=== PATIENT | male | born 1990 ===

== ENCOUNTER 2016-11-07 15:36 | Emergency (ER) | payer OTHER ==
[2016-11-07 15:54] VITALS: BP 124/67; PULSE 77; RESP 16; TEMP 99.2; O2SAT 100
--- NOTE | 2016-11-07 16:36 | ED PDOC ---
HPI: Back Time Seen by Provider: 11/07/16 16:20 Chief Complaint (Nursing): Back Pain History Per: Patient (Right flank pain x 4 days. Worse on inspiration. No SOB. No fever. No urinary sxs. No NVD.) Onset/Duration Of Symptoms: Days (4) Current Symptoms Are (Timing): Still Present Quality Of Discomfort: Aching Severity: Moderate Pain Scale Rating Of: 4 Previous Symptoms: Back Pain Associated Symptoms: None Exacerbating Factor(s): Other (inspiration) Past Medical History Vital Signs: Last Vital Signs Temp 99.2 F 11/07/16 15:52 Pulse 77 11/07/16 15:52 Resp 16 11/07/16 15:52 BP 124/67 11/07/16 15:52 Pulse Ox 100 11/07/16 15:52 - Medical History PMH: Denies: HIV, Chronic Kidney Disease - Surgical History Surgical History: Appendectomy (laparoscopic in 07/2015) - Family History Family History: States: Unknown Family Hx - Immunization History Hx Tetanus Toxoid Vaccination: Yes (Last ER visit ) - Home Medications Home Medications: Ambulatory Orders Medication Instructions Recorded Amoxicillin/Clavulanate Pota 1 tab PO Q12 #14 tab 07/18/15 [Augmentin 875 mg-125 mg] Oxycodone HCl/Acetaminophen 1 tab PO Q6 #20 tab 07/18/15 [Percocet 325 mg-5 mg] Azithromycin [Zithromax] 250 mg PO DAILY #6 tab 09/17/15 Dicyclomine [Bentyl] 20 mg PO Q12 PRN #20 tab 11/18/15 Cyclobenzaprine [Cyclobenzaprine 10 mg PO TID #10 tab 11/07/16 HCl] Naproxen [Naprosyn] 500 mg PO Q12H #20 tab 11/07/16 - Allergies Allergies/Adverse Reactions: Allergies Allergy/AdvReac Type Severity Reaction Status Date / Time shrimp Allergy ANAPHYLAXIS Verified 11/07/16 15:51 Review of Systems Constitutional: Negative for: Fever Respiratory: Positive for: Pleuritic Pain. Negative for: Shortness of Breath Gastrointestinal: Negative for: Nausea, Vomiting, Abdominal Pain, Diarrhea Genitourinary Male: Negative for: Dysuria, Frequency Musculoskeletal: Positive for: Back Pain Neurological: Negative for: Weakness, Numbness Physical Exam - Physical Exam Appears: Positive for: Non-toxic, No Acute Distress Skin: Positive for: Normal Color, Warm, DRY Cardiovascular/Chest: Positive for: Regular Rate, Rhythm Respiratory: Positive for: CNT, Normal Breath Sounds Gastrointestinal/Abdominal: Positive for: Normal Exam, Bowel Sounds, Soft. Negative for: Tenderness Back: Positive for: Normal Inspection. Negative for: L CVA Tenderness, R CVA Tenderness, Muscle Spasm - ECG O2 Sat by Pulse Oximetry: 100 Disposition - Clinical Impression Clinical Impression: Upper back strain - Patient ED Disposition Is Patient to be Admitted: No Counseled Patient/Family Regarding: Studies Performed, Diagnosis, Need For Followup, Rx Given - Disposition Referrals: [facility] [Outside] Disposition: Routine/Home Disposition Time: 18:41 Condition: FAIR Prescriptions: Cyclobenzaprine [Cyclobenzaprine HCl] 10 mg PO TID #10 tab Naproxen [Naprosyn] 500 mg PO Q12H #20 tab Instructions: Muscle Strain (ED)
--- NOTE | 2016-11-07 18:19 | CT ---
PROCEDURE: CT Abdomen and Pelvis without intravenous contrast HISTORY: r/o kidney stone COMPARISON: None. TECHNIQUE: Without contrast.. Contrast Dose: Radiation dose: Total exam DLP = 1047 mGy-cm. This CT exam was performed using one or more of the following dose reduction techniques: Automated exposure control, adjustment of the mA and/or kV according to patient size, and/or use of iterative reconstruction technique. FINDINGS: LOWER THORAX: Unremarkable. LIVER: Unremarkable. No gross lesion or ductal dilatation. GALLBLADDER AND BILE DUCTS: Unremarkable. PANCREAS: Unremarkable. No gross lesion or ductal dilatation. SPLEEN: Unremarkable. ADRENALS: Unremarkable. No mass. KIDNEYS AND URETERS: Unremarkable. No hydronephrosis. No solid mass. VASCULATURE: Unremarkable. No aortic aneurysm. BOWEL: Unremarkable. No obstruction. No gross mural thickening. APPENDIX: Previous appendectomy PERITONEUM: Unremarkable. No free fluid. No free air. LYMPH NODES: Unremarkable. No enlarged lymph nodes. BLADDER: Unremarkable. REPRODUCTIVE: Unremarkable. BONES: No acute fracture. OTHER FINDINGS: None. IMPRESSION: No acute intra-abdominal findings
--- NOTE | 2016-11-07 18:36 | RAD ---
HISTORY: Right sided pain COMPARISON: 09/17/2015. TECHNIQUE: Chest PA and lateral FINDINGS: LUNGS: No active pulmonary disease. PLEURA: No significant pleural effusion identified. No pneumothorax apparent. CARDIOVASCULAR: Normal. OSSEOUS STRUCTURES: No significant abnormalities. VISUALIZED UPPER ABDOMEN: Normal. OTHER FINDINGS: None. IMPRESSION: No active disease. No significant interval change compared to the prior examination(s).
== END 2016-11-07 18:49 | disposition home or self-care (01) ==
LOC: H.ER 15:36
DX: R10.9 Unspecified abdominal pain (principal); M54.9 Dorsalgia, unspecified; R07.1 Chest pain on breathing

== ENCOUNTER 2017-02-22 16:21 | Emergency (ER) | payer OTHER ==
--- NOTE | 2017-02-22 17:18 | ED PDOC ---
HPI: General Adult Time Seen by Provider: 02/22/17 16:34 Chief Complaint (Nursing): Male Genitourinary History Per: Patient Additional Complaint(s): Pt. states this morning he woke with rectal pain and swelling and atraumatic L testicular pain. Reports that for several weeks now he's noticed he's had blood on the tissue paper when he wipes. Denies melena, hematochezia, penile discharge , dysuria, hematuria, rash, trauma. Of note, pt. is sexually active with 1 partner and participates in both protected and unprotected sex. Denies hx of STD. Past Medical History Reviewed: Historical Data, Nursing Documentation, Vital Signs Vital Signs: Last Vital Signs Temp 96.8 F L 02/22/17 16:26 Pulse 64 02/22/17 16:26 Resp 20 02/22/17 16:26 BP 127/62 02/22/17 16:26 Pulse Ox 98 02/22/17 17:22 - Medical History PMH: Denies: HIV, Chronic Kidney Disease - Surgical History Surgical History: Appendectomy (laparoscopic in 07/2015) - Family History Family History: States: No Known Family Hx - Immunization History Hx Tetanus Toxoid Vaccination: Yes (Last ER visit ) - Home Medications Home Medications: Ambulatory Orders Medication Instructions Recorded Amoxicillin/Clavulanate Pota 1 tab PO Q12 #14 tab 07/18/15 [Augmentin 875 mg-125 mg] Oxycodone HCl/Acetaminophen 1 tab PO Q6 #20 tab 07/18/15 [Percocet 325 mg-5 mg] Azithromycin [Zithromax] 250 mg PO DAILY #6 tab 09/17/15 Dicyclomine [Bentyl] 20 mg PO Q12 PRN #20 tab 11/18/15 Cyclobenzaprine [Cyclobenzaprine 10 mg PO TID #10 tab 11/07/16 HCl] Naproxen [Naprosyn] 500 mg PO Q12H #20 tab 11/07/16 Doxycycline Monohydrate 100 mg PO BID #20 tablet 02/22/17 Naproxen [Naprosyn] 500 mg PO BID PRN #30 tab 02/22/17 - Allergies Allergies/Adverse Reactions: Allergies Allergy/AdvReac Type Severity Reaction Status Date / Time shrimp Allergy ANAPHYLAXIS Verified 02/22/17 16:28 Review of Systems ROS Statement: Except As Marked, All Systems Reviewed And Found Negative Gastrointestinal: Positive for: Rectal Pain Genitourinary Male: Positive for: Scrotal Pain Physical Exam - Physical Exam Appears: Positive for: Well, Non-toxic, No Acute Distress Skin: Positive for: Normal Color, Warm. Negative for: Rash Gastrointestinal/Abdominal: Positive for: Normal Exam, Bowel Sounds, Soft, Other (6 o'clock position of rectum has a swollen tender hemorrhoid without active bleeding). Negative for: Tenderness Male Genital Exam: Positive for: normal genitalia, epididymal tenderness, scrotum tenderness (L), testicular tenderness (L). Negative for: no hernia, erythema, inguinal tenderness, lesions, scrotum tenderness (R), testicular tenderness (R), urethral discharge Back: Positive for: Normal Inspection. Negative for: L CVA Tenderness, R CVA Tenderness Extremity: Positive for: Normal ROM - Laboratory Results Result Diagrams: 02/22/17 17:24 02/22/17 17:24 - ECG O2 Sat by Pulse Oximetry: 98 - Progress ED Course And Treament: Labs ordered. US testicles. GC/Chlamydia cultures sent. Toradol 15mg IV given. 1932 Testicular US: Hyperemic left testicle compatible with orchitis. No abscess. No definitive epididymitis. The room on differential includes prior torsion/deep torsion with hyperemia. Case d/w I[employer], urology salon sales consultant, who recommends Rx for doxycycline and Rocephin IM. Pt. can f/u in his office on Friday. Rocephin 1gm IM given. Pt. informed of results and instructed to f/u with Dr. Morrissey on Friday. Disposition - Clinical Impression Clinical Impression: Orchitis - Patient ED Disposition Is Patient to be Admitted: No - Disposition Referrals: Hernandez Morrissey MD [Staff Provider] - [facility] [Outside] Disposition: Routine/Home Disposition Time: 19:36 Condition: STABLE Additional Instructions: CALL DR. MORRISSEY ON FRIDAY TO MAKE AN APPOINTMENT. RETURN TO ED IMMEDIATELY IF SYMPTOMS PERSIST OR WORSEN. Prescriptions: Doxycycline Monohydrate 100 mg PO BID #20 tablet Naproxen [Naprosyn] 500 mg PO BID PRN #30 tab PRN Reason: Pain Instructions: Epididymo-orchitis (ED) Forms: [facility] (Romansh) Print Language: PORTUGUESE
[2017-02-22 17:37] LABS: BASO # 0.1 K/uL (0.0-0.2); BASO % 0.7 % (0.0-2.0); EOS # 0.4 K/uL (0.0-0.7); EOS % 3.4 % (0.0-4.0); HEMOGLOBIN 16.2 g/dL (12.0-18.0); LYMPH # 1.7 K/uL (1.0-4.3); LYMPH % 16.7 % (20.0-40.0); MEAN CELL VOLUME 88.7 fl (80.0-94.0); MEAN CORPUSCULAR HEMOGLOBIN 29.8 pg (27.0-31.0); MEAN CORPUSCULAR HGB CONC 33.6 g/dL (33.0-37.0); MEAN PLATELET VOLUME 8.9 fl (7.2-11.7); MONO # 0.7 K/uL (0.0-0.8); NEUT # 7.6 K/uL (1.8-7.0); NEUT % 72.2 % (50.0-75.0); RBC 5.46 Mil/uL (4.40-5.90); RED CELL DISTRIBUTION WIDTH 15.4 % (11.5-14.5); WHITE BLOOD COUNT 10.5 K/uL (4.8-10.8)
[2017-02-22 17:39] LABS: URINE BACTERIA RARE (<OCC); URINE BILIRUBIN NEGATIVE (NEGATIVE); URINE BLOOD NEGATIVE (NEGATIVE); URINE CLARITY CLOUDY (Clear); URINE COLOR YELLOW (YELLOW); URINE GLUCOSE (UA) NEG (Normal); URINE LEUKOCYTE ESTERASE NEG Leu/uL (Negative); URINE NITRATE NEGATIVE (NEGATIVE); URINE PROTEIN 30 mg/dL (NEGATIVE); URINE UROBILINOGEN 0.2-1.0 mg/dL (0.2-1.0)
[2017-02-22 17:57] LABS: ALB/GLOB RATIO 1.3 (1.0-2.1); ALBUMIN 4.1 g/dL (3.5-5.0); ALT/SGPT 35 U/L (21-72); AST/SGOT 33 U/L (17-59); BLOOD UREA NITROGEN 13 mg/dl (9-20); CALCIUM 9.2 mg/dL (8.4-10.2); GFR AFRICAN-AMERICAN > 60; GFR NON-AFRICAN AMERICAN > 60
[2017-02-22] MEDS ORDERED: cefTRIAXone (Rocephin) 1 gm Inj ONE (19:49)
[2017-02-22 21:01] VITALS: BP 133/61; PULSE 81; RESP 18; TEMP 98; O2SAT 100
--- NOTE | 2017-02-23 13:01 | US ---
HISTORY: L testicular pain TECHNIQUE: Realtime sonography through the scrotum with color and doppler flow. COMPARISON: None Available. FINDINGS: RIGHT TESTICLE: Measures 2.5 x 2.1 x 4.2 cm. Normal echotexture and flow. RIGHT EPIDIDYMIS: Epididymal head measures 1.2 x 0.7 cm. Grossly unremarkable appearance with normal flow.Incidental finding(s): Right epididymal cyst 3 x 4 mm. LEFT TESTICLE: Measures 2.8 x 2.4 x 4.1 cm. Hypervascular left testicle compared to right consistent with acute orchitis. No evidence of torsion. LEFT EPIDIDYMIS: Epididymal head measures 0.7 x 1.1 cm. Grossly unremarkable appearance with normal flow. HYDROCELE: Small and bilaterally symmetrical. VARICOCELE: None. OTHER FINDINGS: None. IMPRESSION: Evidence of unilateral, left orchitis. No evidence of torsion or other acute/ significant finding. Concordant results (preliminary interpretation) provided by [facility]. Procedure Completed: 18:22. Preliminary ([facility]) Report: Dictated and Authenticated: 19:20. Final Interpretation: 12:59. February 23, 2017.
== END 2017-02-22 21:37 | disposition home or self-care (01) ==
LOC: H.ER 16:21
DX: N45.2 Orchitis (principal)

== ENCOUNTER 2017-03-10 22:47 | Inpatient (IN) | payer OTHER ==
[2017-03-10 23:52] LABS: BASO # 0.1 K/uL (0.0-0.2); BASO % 0.7 % (0.0-2.0); EOS # 0.7 K/uL (0.0-0.7); HEMATOCRIT 46.4 % (35.0-51.0); LYMPH % 17.3 % (20.0-40.0); MEAN CELL VOLUME 88.1 fl (80.0-94.0); MEAN CORPUSCULAR HEMOGLOBIN 29.8 pg (27.0-31.0); MEAN CORPUSCULAR HGB CONC 33.8 g/dL (33.0-37.0); MEAN PLATELET VOLUME 9.4 fl (7.2-11.7); MONO # 0.9 K/uL (0.0-0.8); NEUT # 7.7 K/uL (1.8-7.0); NRBC % 0.1 % (0.0-0.0); WHITE BLOOD COUNT 11.3 K/uL (4.8-10.8)
--- NOTE | 2017-03-10 23:54 | ED PDOC ---
HPI: Abdomen Time Seen by Provider: 03/10/17 22:58 Chief Complaint (Nursing): GI Problem Chief Complaint (Provider): rectal pain History Per: Patient History/Exam Limitations: no limitations Onset/Duration Of Symptoms: Days (2 weeks), Gradual, Worse Since (2 days) Location Of Pain/Discomfort: Other (rectum) Quality Of Discomfort: Burning, "Pain" Associated Symptoms: Other (purulent discharge from area when he moves bowels or squeezes it). denies: Fever, Chills, Nausea, Vomiting, Diarrhea, Loss Of Appetite, Urinary Symptoms Exacerbating Factors: None Alleviating Factors: None Additional Complaint(s): Thought it was a hemorrhoid and had been putting cortisone cream on it. Past Medical History Reviewed: Historical Data, Nursing Documentation, Vital Signs Vital Signs: Last Vital Signs Temp 97.4 F L 03/12/17 07:34 Pulse 53 L 03/12/17 07:34 Resp 20 03/12/17 07:34 BP 111/74 03/12/17 07:34 Pulse Ox 97 03/12/17 07:34 - Medical History PMH: Denies: HIV, Chronic Kidney Disease Other PMH: Recent liver abscess, antibiotics for orchitis - Surgical History Surgical History: Appendectomy (laparoscopic in 07/2015) - Family History Family History: States: Unknown Family Hx - Social History Current smoker - smoking cessation education provided: No Alcohol: Social (but stopped since liver abscess diagnosis in November) Drugs: Cannabis - Immunization History Hx Tetanus Toxoid Vaccination: Yes (Last ER visit ) - Home Medications Home Medications: Ambulatory Orders Medication Instructions Recorded Amoxicillin/Clavulanate [Augmentin 1 tab PO BID #14 tab 03/12/17 875 MG-125 MG] Docusate Sodium [Colace] 100 mg PO BID #30 capsule 03/12/17 oxyCODONE/Acetaminophen [Percocet 1 tab PO Q8 PRN #15 tab 03/12/17 5/325 mg Tab] - Allergies Allergies/Adverse Reactions: Allergies Allergy/AdvReac Type Severity Reaction Status Date / Time shrimp Allergy ANAPHYLAXIS Verified 02/22/17 16:28 Review of Systems ROS Statement: Except As Marked, All Systems Reviewed And Found Negative (and as per HPI) Gastrointestinal: Positive for: Rectal Pain Physical Exam - Reviewed Nursing Documentation Reviewed: Yes Vital Signs Reviewed: Yes - Physical Exam Appears: Positive for: Non-toxic, In Acute Distress (mild painful) Head Exam: Positive for: ATRAUMATIC, NORMOCEPHALIC Skin: Positive for: Warm, Dry Eye Exam: Positive for: EOMI, PERRL ENT: Negative for: Pharyngeal Erythema, Tonsillar Exudate Neck: Positive for: Painless ROM, Supple Cardiovascular/Chest: Positive for: Regular Rate, Rhythm, Chest Non Tender. Negative for: Murmur Respiratory: Positive for: Normal Breath Sounds. Negative for: Wheezing Gastrointestinal/Abdominal: Positive for: Bowel Sounds, Soft. Negative for: Tenderness, Mass, Distended, Guarding Rectal: Positive for: Mass, Tenderness, Other (Left of rectum:palpable fluctant area [id number] erythematous area radiating to buttock about 2cm from lesion) Extremity: Negative for: Pedal Edema, Deformity Lymphatic: Negative for: Adenopathy Neurologic/Psych: Positive for: Alert. 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
[2017-03-10 23:55] LABS: VENOUS BLOOD GAS BASE EXCESS 7.5 mmol/L (0.0-2.0); VENOUS BLOOD GAS MODE ROOM AIR; VENOUS BLOOD GAS PCO2 50 mmHg (40-60); VENOUS BLOOD PH 7.43 (7.32-7.43)
[2017-03-11] LABS: ALB/GLOB RATIO 1.4 (1.0-2.1); ALKALINE PHOSPHATASE 184 U/L (38-126); ALT/SGPT 47 U/L (21-72); AST/SGOT 46 U/L (17-59); BILIRUBIN,TOTAL 0.5 mg/dl (0.2-1.3); BLOOD UREA NITROGEN 18 mg/dl (9-20); CALCIUM 9.7 mg/dL (8.4-10.2); CARBON DIOXIDE 26 mmol/L (22-30); CHLORIDE 102 mmol/L (98-107); GFR AFRICAN-AMERICAN > 60; GLUCOSE,RANDOM 99 mg/dL (75-110); POTASSIUM 3.7 MMOL/L (3.6-5.0); SODIUM 139 mmol/l (132-148); TOTAL PROTEIN 7.4 G/DL (6.3-8.2)
--- NOTE | 2017-03-11 00:03 | ED PDOC ---
- Laboratory Results Result Diagrams: 03/10/17 23:49 03/10/17 23:49 - ECG O2 Sat by Pulse Oximetry: 100 Medical Decision Making Medical Decision Making: Receiving sign out: Patient signed out to me by Dr. Costa at 23:[address] and Surgical Consultation. [facility] ([facility]3] Final Radiology Report Call: [phone] assistance Online chat: [email or web address] Patient Name: MARYELLEN SHANNON (Age): 1990 26 Gender: M Date of Exam: 03/10/2017 Referring Physician: Genet Costa # of Images: [phone] Ordered As: CT PELVIS W IV CONTRAST ONLY Page 1 of 2 EXAM: CT Pelvis With Intravenous Contrast EXAM DATE/TIME: 03/10/2017 11:29 PM CLINICAL HISTORY: 26 years old, male; Condition or disease; Abscess; Rectal; Prior surgery; Surgery date: 6+ months; Surgery type: Appendectomy; Additional info: Left perirectal abscess TECHNIQUE: Axial computed tomography images of the pelvis with intravenous contrast. All CT scans at this facility use one or more dose reduction techniques, viz.: automated exposure control; ma/kV adjustment per patient size (including targeted exams where dose is matched to indication; i.e. head); or iterative reconstruction technique. Coronal and sagittal reformatted images were created and reviewed. CONTRAST: 90 mL of administered intravenously. COMPARISON: Prior CT abdomen and pelvis of 11/07/2016 FINDINGS: BOWEL: No acute abnormality of the stomach, small bowel or colon identified. No evidence of bowel obstruction. APPENDIX: Normal appendix is not seen, and there is a reported history of previous appendectomy. INTRAPERITONEAL SPACE: No evidence of free intraperitoneal air or fluid. BLADDER: Mild thickening of the bladder wall. REPRODUCTIVE: No acute abnormality of the reproductive organs is seen. BONES/JOINTS: No acute fractures or other acute bony abnormality noted. SOFT TISSUES: Best seen on image 104 of series 3, there is an oval-shaped, elongated, fluid density area with enhancing, irregular margins in the perianal region on the left, extending along the left gluteal fold, highly suspicious for a left perianal abscess. This measures 3.2 x 3.0 x 1.7 cm maximally, and contains few tiny foci of gas within it. No findings to suggest Jose gangrene/necrotizing fasciitis. VASCULATURE: No acute abnormality identified. LYMPH NODES: No evidence of diffuse lymphadenopathy. IMPRESSION: - Findings highly suspicious for a 3.2 x 3 cm left perianal abscess. - Mild bladder wall thickening. This is a nonspecific finding, but can be seen with cystitis. Recommend clinical correlation. - See above for remaining findings. Thank you for allowing us to participate in the care of your patient. Dictated and Authenticated by: Jaimie Alcaraz MD 03/11/2017 1:22 AM Eastern Time ([place] & [place]) 02:45: , Surgery Resident has seen the patient and will schedule the patient for an I&D tomorrow in the OR. 02:48: Spoke with Dr. Lewis who accepts the patient for admission. Scribe Attestation: Documented by Autumn Loza acting as a scribe for Andrew Castanon MD. Provider Attestation: All medical record entries made by the Scribe were at my direction and personally dictated by me. I have reviewed the chart and agree that the record accurately reflects my personal performance of the history, physical exam, medical decision making, and the department course for this patient. I have also personally directed, reviewed, and agree with the discharge instructions and disposition. Disposition Counseled Patient/Family Regarding: Studies Performed, Diagnosis - Clinical Impression Clinical Impression: Perianal abscess - POA Present On Arrival: None - Disposition Disposition: Hospitalized as Observation Patient Disposition Time: 02:45
[2017-03-11] MEDS ORDERED: Iohexol 300 100 ML IJ ONE (00:07)
[2017-03-11] MEDS ORDERED: Sodium Chloride 0.9% 50 ML IV ONE (00:07)
[2017-03-11 00:08] LABS: PARTIAL THROMBOPLASTIN TIME 30.2 Seconds (25.6-37.1)
--- NOTE | 2017-03-11 01:22 | CT ---
EXAM: CT Pelvis With Intravenous Contrast EXAM DATE/TIME: 03/10/2017 11:29 PM CLINICAL HISTORY: 26 years old, male; Condition or disease; Abscess; Rectal; Prior surgery; Surgery date: 6+ months; Surgery type: Appendectomy; Additional info: Left perirectal abscess TECHNIQUE: Axial computed tomography images of the pelvis with intravenous contrast. All CT scans at this facility use one or more dose reduction techniques, viz.: automated exposure control; ma/kV adjustment per patient size (including targeted exams where dose is matched to indication; i.e. head); or iterative reconstruction technique. Coronal and sagittal reformatted images were created and reviewed. CONTRAST: 90 mL of [id number] administered intravenously. COMPARISON: Prior CT abdomen and pelvis of 11/07/2016 FINDINGS: BOWEL: No acute abnormality of the stomach, small bowel or colon identified. No evidence of bowel obstruction. APPENDIX: Normal appendix is not seen, and there is a reported history of previous appendectomy. INTRAPERITONEAL SPACE: No evidence of free intraperitoneal air or fluid. BLADDER: Mild thickening of the bladder wall. REPRODUCTIVE: No acute abnormality of the reproductive organs is seen. BONES/JOINTS: No acute fractures or other acute bony abnormality noted. SOFT TISSUES: Best seen on image 104 of series 3, there is an oval-shaped, elongated, fluid density area with enhancing, irregular margins in the perianal region on the left, extending along the left gluteal fold, highly suspicious for a left perianal abscess. This measures 3.2 x 3.0 x 1.7 cm maximally, and contains few tiny foci of gas within it. No findings to suggest Jose gangrene/necrotizing fasciitis. VASCULATURE: No acute abnormality identified. LYMPH NODES: No evidence of diffuse lymphadenopathy. IMPRESSION: - Findings highly suspicious for a 3.2 x 3 cm left perianal abscess. - Mild bladder wall thickening. This is a nonspecific finding, but can be seen with cystitis. Recommend clinical correlation. - See above for remaining findings.
--- NOTE | 2017-03-11 01:54 | CP.PCM.CON ---
Past Patient History - Past Medical History & Family History Past Medical History?: No - Past Social History Alcohol: Social (but stopped since liver abscess diagnosis in November) Drugs: Cannabis - CARDIAC Hx Cardiac Disorders: No - PULMONARY Hx Respiratory Disorders: No - NEUROLOGICAL Hx Neurological Disorder: No - HEENT Hx HEENT Problems: No - RENAL Hx Chronic Kidney Disease: No - ENDOCRINE/METABOLIC Hx Endocrine Disorders: No - HEMATOLOGICAL/ONCOLOGICAL Hx Human Immunodeficiency Virus (HIV): No - INTEGUMENTARY Hx Dermatological Problems: No - MUSCULOSKELETAL/RHEUMATOLOGICAL Hx Musculoskeletal Disorders: No - GENITOURINARY/GYNECOLOGICAL Hx Genitourinary Disorders: No - PSYCHIATRIC Hx Psychophysiologic Disorder: No Hx Substance Use: No - SURGICAL HISTORY Hx Appendectomy: Yes (laparoscopic in 07/2015) - ANESTHESIA Hx Anesthesia: No Meds Allergies/Adverse Reactions: Allergies Allergy/AdvReac Type Severity Reaction Status Date / Time shrimp Allergy ANAPHYLAXIS Verified 02/22/17 16:28 Results - Vital Signs Recent Vital Signs: Last Vital Signs Temp Pulse 109 H 03/10/17 22:51 Resp 16 03/10/17 22:51 BP 139/79 03/10/17 22:51 Pulse Ox 100 03/11/17 01:28 - Labs Result Diagrams: 03/10/17 23:49 03/10/17 23:49 Labs: Laboratory Results - last 24 hr 03/10/17 03/10/17 03/10/17 23:47 23:49 23:49 WBC 11.3 H RBC 5.27 Hgb 15.7 Hct 46.4 MCV 88.1 MCH 29.8 MCHC 33.8 RDW 15.0 H Plt Count 179 MPV 9.4 Neut % (Auto) 68.0 Lymph % (Auto) 17.3 L [place] % (Auto) 8.0 Eos % (Auto) 6.0 H Baso % (Auto) 0.7 Neut # 7.7 H Lymph # 2.0 [place] # 0.9 H Eos # 0.7 Baso # 0.1 PT INR APTT pO2 24 L VBG pH 7.43 VBG pCO2 50 VBG HCO3 29.4 VBG Total CO2 34.7 H VBG O2 Sat (Calc) 66.3 H VBG Base Excess 7.5 H VBG Potassium 3.7 Sodium 138.0 139 Chloride 103.0 102 Glucose 102 Lactate 0.9 FiO2 21.0 Potassium 3.7 Carbon Dioxide 26 Anion Gap 16 BUN 18 Creatinine 1.4 Est GFR ( Amer) > 60 Est GFR (Non-Af Amer) > 60 Random Glucose 99 Calcium 9.7 Total Bilirubin 0.5 AST 46 ALT 47 Alkaline Phosphatase 184 H Total Protein 7.4 Albumin 4.3 Globulin 3.1 Albumin/Globulin Ratio 1.4 Venous Blood Potassium 3.7 03/10/17 23:49 WBC RBC Hgb Hct MCV MCH MCHC RDW Plt Count MPV Neut % (Auto) Lymph % (Auto) [place] % (Auto) Eos % (Auto) Baso % (Auto) Neut # Lymph # [place] # Eos # Baso # PT 13.3 H INR 1.3 H APTT 30.2 pO2 VBG pH VBG pCO2 VBG HCO3 VBG Total CO2 VBG O2 Sat (Calc) VBG Base Excess VBG Potassium Sodium Chloride Glucose Lactate FiO2 Potassium Carbon Dioxide Anion Gap BUN Creatinine Est GFR ( Amer) Est GFR (Non-Af Amer) Random Glucose Calcium Total Bilirubin AST ALT Alkaline Phosphatase Total Protein Albumin Globulin Albumin/Globulin Ratio Venous Blood Potassium
[2017-03-11] MEDS ORDERED: Oxycodone/Acetaminophen 5/325 mg Tab PO ONE (03:13)
[2017-03-11] MEDS ORDERED: Lidocaine 2% Jelly (Uro-Jet) TOP ONE (03:16)
[2017-03-11] MEDS ORDERED: Oxycodone/Acetaminophen 5/325 mg Tab ONE (03:19)
[2017-03-11] MEDS ORDERED: Piperacillin/Tazobact 3.375 gm Inj IVPB ONE (03:28)
--- NOTE | 2017-03-11 03:29 | CP.PCM.HP ---
<Domingo Oconnell - Last Filed: 03/11/17 03:24> History of Present Illness - History of Present Illness History of Present Illness: 26M w/ hx of liver abscess, appendicitis s/p laparoscopic appendectomy (2016), presents to the ED with complaints of pain in his anal region. Patient reports having felt a lump around his anus about 2 weeks ago. As per patient the abscess grew in size and became quite painful. Patient reports at one point he popped the abscess and states he had omari pus draining from the area for a couple of days and at times with bowel movements. However, patient states abscess started growing in size again and becoming more painful at which point he decided to report to the hospital. At time of examination patient denies fever/chills, n/v/d, abdominal pain, hematochezia. PMH: None PSH: Drainage of liver abscess via IR drain, laparoscopic appendectomy (2016) Allergies: NKDA - allergic to shrimp Present on Admission - Present on Admission Any Indicators Present on Admission: No Review of Systems - Review of Systems Review of Systems: 12 pt ROS unremarkable, except as stated in HPI Past Patient History - Past Medical History & Family History Past Medical History?: No - Past Social History Smoking Status: Light Smoker < 10 Cigarettes Daily - CARDIAC Hx Cardiac Disorders: No - PULMONARY Hx Respiratory Disorders: No - NEUROLOGICAL Hx Neurological Disorder: No - HEENT Hx HEENT Problems: No - RENAL Hx Chronic Kidney Disease: No - ENDOCRINE/METABOLIC Hx Endocrine Disorders: No - HEMATOLOGICAL/ONCOLOGICAL Hx Human Immunodeficiency Virus (HIV): No - INTEGUMENTARY Hx Dermatological Problems: No - MUSCULOSKELETAL/RHEUMATOLOGICAL Hx Musculoskeletal Disorders: No - GASTROINTESTINAL Other/Comment: liver abscess - GENITOURINARY/GYNECOLOGICAL Hx Genitourinary Disorders: No - PSYCHIATRIC Hx Psychophysiologic Disorder: No Hx Substance Use: Yes - SURGICAL HISTORY Hx Appendectomy: Yes (laparoscopic in 07/2015) - ANESTHESIA Hx Anesthesia: No Meds Allergies/Adverse Reactions: Allergies Allergy/AdvReac Type Severity Reaction Status Date / Time shrimp Allergy ANAPHYLAXIS Verified 02/22/17 16:28 Physical Exam - Constitutional Appears: No Acute Distress - Head Exam Head Exam: NORMOCEPHALIC - Eye Exam Eye Exam: Normal appearance - ENT Exam ENT Exam: Mucous Membranes Moist - Respiratory Exam Respiratory Exam: NORMAL BREATHING PATTERN - Cardiovascular Exam Cardiovascular Exam: +S1, +S2 - GI/Abdominal Exam GI & Abdominal Exam: Soft - Rectal Exam Additional comments: left amanda-anal abscess along 7 o'clock +induration +fluctuant +active drainage of purulent fluid - Extremities Exam Extremities exam: Negative for: calf tenderness, pedal edema - Neurological Exam Neurological exam: Alert, Oriented x3 - Psychiatric Exam Psychiatric exam: Normal Mood - Skin Skin Exam: Warm Results - Vital Signs Recent Vital Signs: Last Vital Signs Temp 98.3 F 03/11/17 03:17 Pulse 58 L 03/11/17 03:17 Resp 16 03/11/17 03:17 BP 111/55 L 03/11/17 03:17 Pulse Ox 96 03/11/17 03:17 - Labs Result Diagrams: 03/10/17 23:49 03/10/17 23:49 Labs: Laboratory Results - last 24 hr 03/10/17 03/10/17 03/10/17 23:47 23:49 23:49 WBC 11.3 H RBC 5.27 Hgb 15.7 Hct 46.4 MCV 88.1 MCH 29.8 MCHC 33.8 RDW 15.0 H Plt Count 179 MPV 9.4 Neut % (Auto) 68.0 Lymph % (Auto) 17.3 L Ness % (Auto) 8.0 Eos % (Auto) 6.0 H Baso % (Auto) 0.7 Neut # 7.7 H Lymph # 2.0 Ness # 0.9 H Eos # 0.7 Baso # 0.1 PT INR APTT pO2 24 L VBG pH 7.43 VBG pCO2 50 VBG HCO3 29.4 VBG Total CO2 34.7 H VBG O2 Sat (Calc) 66.3 H VBG Base Excess 7.5 H VBG Potassium 3.7 Sodium 138.0 139 Chloride 103.0 102 Glucose 102 Lactate 0.9 FiO2 21.0 Potassium 3.7 Carbon Dioxide 26 Anion Gap 16 BUN 18 Creatinine 1.4 Est GFR ( Amer) > 60 Est GFR (Non-Af Amer) > 60 Random Glucose 99 Calcium 9.7 Total Bilirubin 0.5 AST 46 ALT 47 Alkaline Phosphatase 184 H Total Protein 7.4 Albumin 4.3 Globulin 3.1 Albumin/Globulin Ratio 1.4 Venous Blood Potassium 3.7 03/10/17 23:49 WBC RBC Hgb Hct MCV MCH MCHC RDW Plt Count MPV Neut % (Auto) Lymph % (Auto) Ness % (Auto) Eos % (Auto) Baso % (Auto) Neut # Lymph # Ness # Eos # Baso # PT 13.3 H INR 1.3 H APTT 30.2 pO2 VBG pH VBG pCO2 VBG HCO3 VBG Total CO2 VBG O2 Sat (Calc) VBG Base Excess VBG Potassium Sodium Chloride Glucose Lactate FiO2 Potassium Carbon Dioxide Anion Gap BUN Creatinine Est GFR ( Amer) Est GFR (Non-Af Amer) Random Glucose Calcium Total Bilirubin AST ALT Alkaline Phosphatase Total Protein Albumin Globulin Albumin/Globulin Ratio Venous Blood Potassium - Imaging and Cardiology CT scan - pelvis Status: Image reviewed by me, Report reviewed by me Assessment & Plan - Assessment and Plan (Free Text) Assessment: 26M w/ left amanda-anal abscess -NPO -IVF -Abx -Analgesics -DVT/GI ppx -Pt to be scheduled for I&D of amanda-anal abscess -Consent in chart -Further recs per Dr. Lilibeth Oconnell PGY-2 <Poncho Mcelroy B - Last Filed: 03/12/17 19:20> Results - Vital Signs Recent Vital Signs: Last Vital Signs Temp 97.4 F L 03/12/17 07:34 Pulse 53 L 03/12/17 07:34 Resp 20 03/12/17 07:34 BP 111/74 03/12/17 07:34 Pulse Ox 97 03/12/17 07:34 - Labs Result Diagrams: 03/12/17 06:35 03/10/17 23:49 Labs: Laboratory Results - last 24 hr 03/12/17 06:35 WBC 8.4 RBC 5.31 Hgb 15.7 Hct 47.1 MCV 88.8 MCH 29.6 MCHC 33.3 RDW 14.9 H Plt Count 166 Attending/Attestation - Attestation I have personally seen and examined this patient.: Yes I have fully participated in the care of the patient.: Yes I have reviewed all pertinent clinical information: Yes Notes (Text): 03/12/17 19:18 Pt was seen and examined at bedside Agree with above note and assessment Pt with Left Perianal abscess I & D of Perianal abscess Consent C/w IV antibiotics Plan d.w pt in detail Risk and benefit explained in detail.
[2017-03-11] MEDS ORDERED: Lactated Ringer's 1,000 ML IV SCH (03:30)
[2017-03-11] MEDS: Piperacillin/Tazobact 3.375 GM in Sodium Chloride 0.9% 100 ML IVPB SCH ×3 (04:18→20:11)
[2017-03-11] MEDS ORDERED: Pneumococcal 23-Valent Vaccine IM ONE (06:00)
--- NOTE | 2017-03-11 06:40 | CP.PCM.CON ---
History of Present Illness - History of Present Illness History of Present Illness: Attending: Dr Mcelroy Reason for Consult; Medical clearance Chief Complaint: Perianal pain The patient was seen and examined in the ED HPI: 26 years old male with hx of Appendectomy with intra-abdominal abscess drainage and liver abscess drainage by IR at [facility] November 2016 with 3 months of Antibiotic ending early February 2017.He came to the ED on with rectal pain and diagnosed with Orchitis and Haemorrhoids. At that time he noted the small swelling at the left intergluteal area which continued to get larger until it began to ooze Pus. He squeezed it removing some pus but later it became larger and more painful with purulent discharge. Because of this he returned to the ED. He referred no fever, chills, abdominal pain, dysuria nor urinary frequency. No Chest pain nor SOB nausea nor vomits. 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 absent: Diplopia, Floaters, Photophobia Ears: absent: Decreased Hearing, Ear Discharge, Ear Pain, Tinnitus Nose/Mouth/Throat: absent: Epistaxis, Nasal Congestion, Nasal Discharge, Sinus Pain, Sinus Pressure - Cardiovascular Cardiovascular: absent: Chest Pain, Dyspnea, Edema - Respiratory Respiratory: absent: Cough, Dyspnea, Wheezing, Stridor - Gastrointestinal Gastrointestinal: Diarrhea. absent: Abdominal Pain, Constipation, Nausea, Vomiting - Genitourinary Genitourinary: absent: Dysuria, Flank Pain, Hematuria, Urinary Frequency - Musculoskeletal Musculoskeletal: absent: Arthralgias, Back Pain, Joint Swelling - Integumentary Additional comments: Painful swelling with purulent oozing to the left intrergluteal region - Neurological Neurological: absent: Confusion, Dizziness, Focal Weakness, Headaches, Weakness - Psychiatric Psychiatric: absent: Anxiety, Depression, Panic Attacks - Endocrine Endocrine: absent: Palpitations, Polydipsia, Polyphagia, Polyuria - Hematologic/Lymphatic Hematologic: absent: Easy Bleeding, Easy Bruising Past Patient History - Past Medical History & Family History Past Medical History?: No - Past Social History Smoking Status: Light Smoker < 10 Cigarettes Daily Chewing Tobacco Use: No Cigar Use: No Alcohol: Social Drugs: Cannabis Home Situation {Lives}: Alone - CARDIAC Hx Cardiac Disorders: No - PULMONARY Hx Respiratory Disorders: No - NEUROLOGICAL Hx Neurological Disorder: No - HEENT Hx HEENT Problems: No - RENAL Hx Chronic Kidney Disease: No - ENDOCRINE/METABOLIC Hx Endocrine Disorders: No - HEMATOLOGICAL/ONCOLOGICAL Hx Human Immunodeficiency Virus (HIV): No - INTEGUMENTARY Hx Dermatological Problems: No - MUSCULOSKELETAL/RHEUMATOLOGICAL Hx Falls: No - GASTROINTESTINAL Hx Gastrointestinal Disorders: Yes Other/Comment: liver abscess - GENITOURINARY/GYNECOLOGICAL Hx Genitourinary Disorders: Yes Other/Comment: Orchitis - PSYCHIATRIC Hx Substance Use: No - SURGICAL HISTORY Hx Appendectomy: Yes (laparoscopic in 07/2015) - ANESTHESIA Hx Anesthesia: Yes Hx Anesthesia Reactions: No Meds Allergies/Adverse Reactions: Allergies Allergy/AdvReac Type Severity Reaction Status Date / Time shrimp Allergy ANAPHYLAXIS Verified 02/22/17 16:28 - Medications Medications: Current Medications Acetaminophen (Tylenol 325mg Tab) 975 mg PO Q8 PRN PRN Reason: Pain, moderate (4-7) Famotidine (Pepcid) 20 mg IVP DAILY [facility] Piperacillin Sod/Tazobactam (Sod 3.375 gm/ Sodium Chloride) 100 mls @ 100 mls/ hr IVPB Q8H [facility] Last Admin: 03/11/17 04:18 Dose: 100 mls/hr Lactated Ringer's (Lactated Ringer's) 1,000 mls @ 130 mls/hr IV .Q7H42M [facility] Physical Exam - Constitutional Appears: No Acute Distress - Head Exam Head Exam: ATRAUMATIC, NORMAL INSPECTION, NORMOCEPHALIC - Eye Exam Eye Exam: EOMI, Normal appearance Pupil Exam: NORMAL ACCOMODATION, PERRL - ENT Exam ENT Exam: Mucous Membranes Moist, Normal Exam - Neck Exam Neck exam: Positive for: Full Rom, Normal Inspection. Negative for: Lymphadenopathy, Tenderness - Respiratory Exam Respiratory Exam: Clear to Auscultation Bilateral. absent: Rales, Rhonchi, Wheezes - Cardiovascular Exam Cardiovascular Exam: REGULAR RHYTHM, RRR, +S1, +S2. absent: Gallop, JVD - GI/Abdominal Exam GI & Abdominal Exam: Normal Bowel Sounds, Soft. absent: Mass, Organomegaly, Tenderness - Rectal Exam Rectal Exam: Deferred Additional comments: left intergluteal with a [id number] CM flucculent and painful on palpation - Extremities Exam Extremities exam: Positive for: full ROM, normal inspection. Negative for: calf tenderness, joint swelling, pedal edema - Back Exam Back exam: NORMAL INSPECTION. absent: CVA tenderness (L), CVA tenderness (R) - Neurological Exam Neurological exam: Alert, CN II-XII Intact, Oriented x3, Reflexes Normal - Psychiatric Exam Psychiatric exam: Normal Affect, Normal Mood - Skin Skin Exam: Dry, Intact, Normal Color, Warm Results - Vital Signs Recent Vital Signs: Last Vital Signs Temp 98.3 F 03/11/17 04:19 Pulse 58 L 03/11/17 04:19 Resp 16 03/11/17 04:19 BP 111/55 L 03/11/17 04:19 Pulse Ox 100 03/11/17 03:39 - Labs Result Diagrams: 03/10/17 23:49 03/10/17 23:49 Labs: Laboratory Results - last 24 hr 03/10/17 03/10/17 03/10/17 23:47 23:49 23:49 WBC 11.3 H RBC 5.27 Hgb 15.7 Hct 46.4 MCV 88.1 MCH 29.8 MCHC 33.8 RDW 15.0 H Plt Count 179 MPV 9.4 Neut % (Auto) 68.0 Lymph % (Auto) 17.3 L Randall % (Auto) 8.0 Eos % (Auto) 6.0 H Baso % (Auto) 0.7 Neut # 7.7 H Lymph # 2.0 Randall # 0.9 H Eos # 0.7 Baso # 0.1 PT INR APTT pO2 24 L VBG pH 7.43 VBG pCO2 50 VBG HCO3 29.4 VBG Total CO2 34.7 H VBG O2 Sat (Calc) 66.3 H VBG Base Excess 7.5 H VBG Potassium 3.7 Sodium 138.0 139 Chloride 103.0 102 Glucose 102 Lactate 0.9 FiO2 21.0 Potassium 3.7 Carbon Dioxide 26 Anion Gap 16 BUN 18 Creatinine 1.4 Est GFR ( Amer) > 60 Est GFR (Non-Af Amer) > 60 Random Glucose 99 Calcium 9.7 Total Bilirubin 0.5 AST 46 ALT 47 Alkaline Phosphatase 184 H Total Protein 7.4 Albumin 4.3 Globulin 3.1 Albumin/Globulin Ratio 1.4 Venous Blood Potassium 3.7 03/10/17 23:49 WBC RBC Hgb Hct MCV MCH MCHC RDW Plt Count MPV Neut % (Auto) Lymph % (Auto) Randall % (Auto) Eos % (Auto) Baso % (Auto) Neut # Lymph # Randall # Eos # Baso # PT 13.3 H INR 1.3 H APTT 30.2 pO2 VBG pH VBG pCO2 VBG HCO3 VBG Total CO2 VBG O2 Sat (Calc) VBG Base Excess VBG Potassium Sodium Chloride Glucose Lactate FiO2 Potassium Carbon Dioxide Anion Gap BUN Creatinine Est GFR ( Amer) Est GFR (Non-Af Amer) Random Glucose Calcium Total Bilirubin AST ALT Alkaline Phosphatase Total Protein Albumin Globulin Albumin/Globulin Ratio Venous Blood Potassium - Imaging and Cardiology CT pelvis Status: Image reviewed by me, Report reviewed by me Additional comment: FINDINGS: BOWEL: No acute abnormality of the stomach, small bowel or colon identified. No evidence of bowel obstruction. APPENDIX: Normal appendix is not seen, and there is a reported history of previous appendectomy. INTRAPERITONEAL SPACE: No evidence of free intraperitoneal air or fluid. BLADDER: Mild thickening of the bladder wall. REPRODUCTIVE: No acute abnormality of the reproductive organs is seen. BONES/JOINTS: No acute fractures or other acute bony abnormality noted. SOFT TISSUES: Best seen on image 104 of series 3, there is an oval-shaped, elongated, fluid density area with enhancing, irregular margins in the perianal region on the left, extending along the left gluteal fold, highly suspicious for a left perianal abscess. This measures 3.2 x 3.0 x 1.7 cm maximally, and contains few tiny foci of gas within it. No findings to suggest Jose gangrene/necrotizing fasciitis. VASCULATURE: No acute abnormality identified. LYMPH NODES: No evidence of diffuse lymphadenopathy. IMPRESSION: - Findings highly suspicious for a 3.2 x 3 cm left perianal abscess. - Mild bladder wall thickening. This is a nonspecific finding, but can be seen with cystitis. Recommend clinical correlation. - See above for remaining findings. Assessment & Plan - Assessment and Plan (Free Text) Plan: 26 years old male with hx of Appendectomy with intra-abdominal abscess drainage and liver abscess drainage by IR at [facility] November 2016 with 3 months of Antibiotic ending early February 2017. Comes with painful swelling with oozing of purulent material at the left intergluteal reagion . He referred no fever, chills, abdominal pain, dysuria nor urinary frequency. No Chest pain nor SOB nausea nor vomits. #. left Perianal Abscess - Surgery Dr Reyes aware -Vancomycin 1gm IVPB Q12 - Zosyn IVPB Q6H - Pain management #. DVT post surgery D1 with Lovenox #. Code Status: Full Patient with no Pulmonary nor Cardiac hx and no abnormal labs at present is cleared for surgery with Minimal risk for cardiac event. Nicho Lewis MD - Date & Time Date: 03/11/17 Time: 06:39
[2017-03-11] MEDS ORDERED: Lidocaine 1% Inj (20ml) IJ ONE (07:55)
--- NOTE | 2017-03-11 08:49 | PCM.SURG1 ---
Surgeon's Initial Post Op Note - Surgeon's Notes Surgeon: Lilibeth Lace Roller: Michael Type of Anesthesia: Local (1% lidocaine 10ml) Pre-Operative Diagnosis: amanda-rectal abscess Operative Findings: 10cc pus Post-Operative Diagnosis: same Operation Performed: incision and drainage Specimen/Specimens Removed: none Estimated Blood Loss: EBL {In ML}: 20 Blood Products Given: N/A Drains Used: No Drains Post-Op Condition: Good Date of Surgery/Procedure: 03/11/17 Time of Surgery/Procedure: 08:48
[2017-03-11] MEDS: Oxycodone/Acetaminophen 5/325 mg Tab PO PRN (21:55)
[2017-03-12] MEDS: Piperacillin/Tazobact 3.375 GM in Sodium Chloride 0.9% 100 ML IVPB SCH ×2 (03:55→11:27)
[2017-03-12] MEDS: Oxycodone/Acetaminophen 5/325 mg Tab PO PRN (03:55)
[2017-03-12 07:24] LABS: HEMATOCRIT 47.1 % (35.0-51.0); MEAN CELL VOLUME 88.8 fl (80.0-94.0); MEAN CORPUSCULAR HEMOGLOBIN 29.6 pg (27.0-31.0); MEAN CORPUSCULAR HGB CONC 33.3 g/dL (33.0-37.0); RED CELL DISTRIBUTION WIDTH 14.9 % (11.5-14.5); WHITE BLOOD COUNT 8.4 K/uL (4.8-10.8)
[2017-03-12 07:35] VITALS: BP 111/74; PULSE 53; RESP 20; TEMP 97.4
--- NOTE | 2017-03-12 07:54 | CP.PCM.PN ---
<Tobi Rodriguez - Last Filed: 03/12/17 07:51> Subjective - Date & Time of Evaluation Date of Evaluation: 03/12/17 Time of Evaluation: 07:52 - Subjective Subjective: Surgery: Dr. Mcelroy Pt seen and examined. Resting comfortably in bed. Pain is improved compared to yesterday. No F/C. No N/V. Objective - Vital Signs/Intake and Output Vital Signs (last 24 hours): Temp Pulse Resp BP Pulse Ox 97.4 F L 53 L 20 111/74 97 03/12/17 07:34 03/12/17 07:34 03/12/17 07:34 03/12/17 07:34 03/12/17 07:34 - Medications Medications: Current Medications Acetaminophen (Tylenol 325mg Tab) 975 mg PO Q8 PRN PRN Reason: Pain, moderate (4-7) Famotidine (Pepcid) 20 mg IVP DAILY [facility] Last Admin: 03/11/17 10:59 Dose: 20 mg Piperacillin Sod/Tazobactam (Sod 3.375 gm/ Sodium Chloride) 100 mls @ 100 mls/ hr IVPB Q8H [facility] Last Admin: 03/12/17 03:55 Dose: 100 mls/hr Lactated Ringer's (Lactated Ringer's) 1,000 mls @ 130 mls/hr IV .Q7H42M [facility] Vancomycin HCl 1 gm/ Sodium (Chloride) 250 mls @ 166.667 mls/hr IVPB Q12 [facility] Last Admin: 03/11/17 21:46 Dose: 166.667 mls/hr Morphine Sulfate (Morphine) 4 mg IVP Q4 PRN PRN Reason: Pain, severe (8-10) Last Admin: 03/11/17 13:18 Dose: 4 mg Morphine Sulfate (Morphine) 2 mg IVP Q4 PRN PRN Reason: Pain, moderate (4-7) Last Admin: 03/12/17 07:27 Dose: 2 mg Oxycodone/Acetaminophen (Percocet 5/325 Mg Tab) 1 tab PO Q4 PRN PRN Reason: Pain, moderate (4-7) Stop: 03/14/17 08:44 Last Admin: 03/12/17 03:55 Dose: 1 tab - Labs Labs: 03/12/17 06:35 PT 13.3 Seconds (9.8-13.1) H 03/10/17 23:49 INR 1.3 (0.9-1.2) H 03/10/17 23:49 APTT 30.2 Seconds (25.6-37.1) 03/10/17 23:49 - Constitutional Appears: Non-toxic, In Acute Distress - Head Exam Head Exam: ATRAUMATIC, NORMOCEPHALIC - Eye Exam Eye Exam: EOMI - ENT Exam ENT Exam: Mucous Membranes Moist - Neck Exam Neck Exam: Full ROM - Respiratory Exam Respiratory Exam: NORMAL BREATHING PATTERN. absent: Accessory Muscle Use, Respiratory Distress - GI/Abdominal Exam GI & Abdominal Exam: Soft. absent: Tenderness - Rectal Exam Additional comments: L side amanda-anal abscess, s/p I&D, decreased induration/edema, tender to palpation, minimal drainage Assessment and Plan - Assessment and Plan (Free Text) Assessment: 26M w. perianal abscess, s/p I&D POD#1 -pt clear for D/C from surgical standpoint -Reccommend PO augmentin x 1 week -Pt can remove packing tomorrow, dress wound PRN -Tylenol/advil for pain -f/u w. Dr. Mcelroy in 1 week -return to ED if sx worsen -will d/w attending Zemaitis PGY3 <Poncho Mcelroy B - Last Filed: 03/13/17 17:08> Objective - Vital Signs/Intake and Output Vital Signs (last 24 hours): Temp Pulse Resp BP Pulse Ox 97.4 F L 53 L 20 111/74 97 03/12/17 07:34 03/12/17 07:34 03/12/17 07:34 03/12/17 07:34 03/12/17 07:34 - Labs Labs: 03/12/17 06:35 PT 13.3 Seconds (9.8-13.1) H 03/10/17 23:49 INR 1.3 (0.9-1.2) H 03/10/17 23:49 APTT 30.2 Seconds (25.6-37.1) 03/10/17 23:49 Attending/Attestation - Attestation I have fully participated in the care of the patient.: Yes I have reviewed all pertinent clinical information, including history, physical exam and plan: Yes Notes (Text): 03/13/17 17:07 Pt is s/p I & D of Perianal abscess Reg diet f/u as out pt local wound care Po antibiotics
--- NOTE | 2017-03-12 09:24 | CP.PCM.DIS ---
Provider - Provider Date of Admission: 03/11/17 13:54 Attending physician: Poncho Mcelroy MD Consults: Surgery : Dr Mcelroy Time Spent in preparation of Discharge (in minutes): 25 Diagnosis - Discharge Diagnosis (1) Amanda-rectal abscess Status: Acute (2) Status post incision and drainage Status: Acute Hospital Course - Lab Results Lab Results: Most Recent Lab Values WBC 8.4 K/uL (4.8-10.8) 03/12/17 06:35 RBC 5.31 Mil/uL (4.40-5.90) 03/12/17 06:35 Hgb 15.7 g/dL (12.0-18.0) 03/12/17 06:35 Hct 47.1 % (35.0-51.0) 03/12/17 06:35 MCV 88.8 fl (80.0-94.0) 03/12/17 06:35 MCH 29.6 pg (27.0-31.0) 03/12/17 06:35 MCHC 33.3 g/dL (33.0-37.0) 03/12/17 06:35 RDW 14.9 % (11.5-14.5) H 03/12/17 06:35 Plt Count 166 K/uL (130-400) 03/12/17 06:35 MPV 9.4 fl (7.2-11.7) 03/10/17 23:49 Neut % (Auto) 68.0 % (50.0-75.0) 03/10/17 23:49 Lymph % (Auto) 17.3 % (20.0-40.0) L 03/10/17 23:49 Vigo % (Auto) 8.0 % (0.0-10.0) 03/10/17 23:49 Eos % (Auto) 6.0 % (0.0-4.0) H 03/10/17 23:49 Baso % (Auto) 0.7 % (0.0-2.0) 03/10/17 23:49 Neut # 7.7 K/uL (1.8-7.0) H 03/10/17 23:49 Lymph # 2.0 K/uL (1.0-4.3) 03/10/17 23:49 Vigo # 0.9 K/uL (0.0-0.8) H 03/10/17 23:49 Eos # 0.7 K/uL (0.0-0.7) 03/10/17 23:49 Baso # 0.1 K/uL (0.0-0.2) 03/10/17 23:49 PT 13.3 Seconds (9.8-13.1) H 03/10/17 23:49 INR 1.3 (0.9-1.2) H 03/10/17 23:49 APTT 30.2 Seconds (25.6-37.1) 03/10/17 23:49 pO2 24 mm/Hg (30-55) L 03/10/17 23:47 VBG pH 7.43 (7.32-7.43) 03/10/17 23:47 VBG pCO2 50 mmHg (40-60) 03/10/17 23:47 VBG HCO3 29.4 mmol/L 03/10/17 23:47 VBG Total CO2 34.7 mmol/L (22-28) H 03/10/17 23:47 VBG O2 Sat (Calc) 66.3 % (40-65) H 03/10/17 23:47 VBG Base Excess 7.5 mmol/L (0.0-2.0) H 03/10/17 23:47 VBG Potassium 3.7 mmol/L (3.6-5.2) 03/10/17 23:47 Sodium 138.0 mmol/L (132-148) 03/10/17 23:47 Chloride 103.0 mmol/L (98-107) 03/10/17 23:47 Glucose 102 mg/dL (75-110) 03/10/17 23:47 Lactate 0.9 mmol/L (0.7-2.1) 03/10/17 23:47 FiO2 21.0 % 03/10/17 23:47 Sodium 139 mmol/l (132-148) 03/10/17 23:49 Potassium 3.7 MMOL/L (3.6-5.0) 03/10/17 23:49 Chloride 102 mmol/L (98-107) 03/10/17 23:49 Carbon Dioxide 26 mmol/L (22-30) 03/10/17 23:49 Anion Gap 16 (10-20) 03/10/17 23:49 BUN 18 mg/dl (9-20) 03/10/17 23:49 Creatinine 1.4 mg/dL (0.8-1.5) 03/10/17 23:49 Est GFR ( Amer) > 60 03/10/17 23:49 Est GFR (Non-Af Amer) > 60 03/10/17 23:49 Random Glucose 99 mg/dL (75-110) 03/10/17 23:49 Calcium 9.7 mg/dL (8.4-10.2) 03/10/17 23:49 Total Bilirubin 0.5 mg/dl (0.2-1.3) 03/10/17 23:49 AST 46 U/L (17-59) 03/10/17 23:49 ALT 47 U/L (21-72) 03/10/17 23:49 Alkaline Phosphatase 184 U/L (38-126) H 03/10/17 23:49 Total Protein 7.4 G/DL (6.3-8.2) 03/10/17 23:49 Albumin 4.3 g/dL (3.5-5.0) 03/10/17 23:49 Globulin 3.1 gm/dL (2.2-3.9) 03/10/17 23:49 Albumin/Globulin Ratio 1.4 (1.0-2.1) 03/10/17 23:49 Venous Blood Potassium 3.7 mmol/L (3.6-5.2) 03/10/17 23:47 Blood Type O POSITIVE 03/10/17 23:31 Antibody Screen Negative 03/10/17 23:31 BBK History Checked Patient has bt 03/10/17 23:31 - Hospital Course Hospital Course: 26 y/o gent came in because of amanda-anal pain for the past 2 wks, felt tender lump which has been worsening. In the ED Pelvic CT showed Amanda-anal abscess. Pt was admitted and started on IV Zosyn and Vanco. Surgery consulted. Pt then underwent Incision and drainage of abscess done by Dr Mcelroy- 10 ml of pus obtained. Packing placed. Pt has no fever. Mild Leukocytosis on admission normalized. blood culture negative. He was cleared for discharge by Surgery - packing to be removed tomorrow am. Discharge Exam - Head Exam Head Exam: ATRAUMATIC, NORMAL INSPECTION, NORMOCEPHALIC - Eye Exam Eye Exam: EOMI, Normal appearance, PERRL Pupil Exam: NORMAL ACCOMODATION - ENT Exam ENT Exam: Mucous Membranes Moist, Normal External Ear Exam - Neck Exam Neck exam: Full Rom - Respiratory Exam Respiratory Exam: NORMAL BREATHING PATTERN. absent: Respiratory Distress - Cardiovascular Exam Cardiovascular Exam: REGULAR RHYTHM, +S1, +S2 - GI/Abdominal Exam GI & Abdominal Exam: Normal Bowel Sounds, Soft. absent: Tenderness - Extremities Exam Extremities exam: full ROM, normal capillary refill, normal inspection, pedal pulses present - Back Exam Back exam: absent: CVA tenderness (L), CVA tenderness (R) - Neurological Exam Neurological exam: Alert, CN II-XII Intact, Normal Gait, Oriented x3 - Psychiatric Exam Psychiatric exam: Normal Affect, Normal Mood - Skin Skin Exam: Dry, Normal Color, Warm Discharge Plan - Discharge Medications Prescriptions: Amoxicillin/Clavulanate [Augmentin 875 MG-125 MG] 1 tab PO BID #14 tab Docusate Sodium [Colace] 100 mg PO BID #30 capsule oxyCODONE/Acetaminophen [Percocet 5/325 mg Tab] 1 tab PO Q8 PRN #15 tab PRN Reason: Pain, Moderate (4-7) - Follow Up Plan Condition: GOOD Disposition: HOME/ ROUTINE Instructions: Acute Wound Care (DC), Abscess (GEN), Rectal Abscess (DC) Additional Instructions: ff up with Dr Gonzalez in 1 wk Remove packing tomorrow am Referrals: Poncho Mcelroy MD [Staff Provider] -
--- NOTE | 2017-03-13 02:23 | OP ---
PROCEDURE DATE: 03/11/2017 PREOPERATIVE DIAGNOSIS: Perianal abscess. POSTOPERATIVE DIAGNOSIS: Perianal abscess. PROCEDURE DONE: 1. Incision and drainage of perianal abscess. 2. Debridement of perirectal wound. SURGEON: Dr. Poncho Mcelroy, BATTING MACHINE OPERATOR: Tobi Rodriguez PGY3, resident. TYPE OF ANESTHESIA: Local anesthesia. ESTIMATED BLOOD LOSS: Around 5 mL DRAINS: None. PATHOLOGY: Pus was sent for the culture and sensitivity. COMPLICATIONS: None. INTRAOPERATIVE FINDINGS: Patient had approximately 3 x 3 cm left perirectal abscess. DESCRIPTION OF PROCEDURE: On intraoperative steps, this 26-year-old male who was diagnosed with perianal abscess and the patient was consented for incision and drainage of perianal abscess and the patient was placed in right lateral position and perineal area was prepped and draped and local anesthesia was injected. The cruciate-shaped incision was made of approximate 2 x 2 cm size, approximately 10 mL of pus was drained and cavity was debrided bluntly and sharply and after proper hemostasis the wound was packed with Iodoform packing and dry sterile dressing was applied. Patient tolerated the procedure well. Counts of the instrument was correct. There was no apparent complication. Poncho Mcelroy MD MTDD
[2017-03-14 16:52] VITALS: O2SAT 100
== END 2017-03-12 13:21 | disposition home or self-care (01) | DRG 158 ==
LOC: H.ER 22:47 → H.EROBSV 23:34 → H.ERHOLD 03-11 02:47 → H.MEDSURG1 03-11 04:52 → OBSVTOIN 03-11 13:54
PROVIDERS: ADMIT Surgery Surgical Critical Care; ATTEND Surgery Surgical Critical Care
PROC: 0D9Q0ZZ Drainage of Anus, Open Approach (ICD-10-PCS; principal; 2017-03-11)
DX: K61.2 Anorectal abscess (principal); F17.210 Nicotine dependence, cigarettes, uncomplicated; F12.90 Cannabis use, unspecified, uncomplicated; Z90.49 Acquired absence of other specified parts of digestive tract

== ENCOUNTER 2017-03-26 09:58 | Day surgery (SDC) | payer OTHER ==
[2017-03-26] MEDS ORDERED: Lactated Ringer's 500 ML IV ONE (10:09)
[2017-03-26] MEDS ORDERED: Propofol 10 mg/ml Inj (20 ML) ONE (10:52)
[2017-03-26 11:18] VITALS: TEMP 96.8; O2SAT 100
[2017-03-26 11:37] VITALS: BP 109/65; PULSE 60; RESP 20
[2017-03-26 12:30] LABS: C DIFF TOXIN A B NEGATIVE (NEGATIVE)
[2017-03-26 21:09] LABS: FECAL LEUKOCYTES POSITIVE (NEGATIVE)
== END 2017-03-26 12:16 | disposition home or self-care (01) ==
LOC: H.ENDO 09:58
PROVIDERS: ATTEND Internal Medicine Gastroenterology
DX: K52.9 Noninfective gastroenteritis and colitis, unspecified (principal)
CPT/HCPCS: 45380; 87045; 87177; 87209; 87230; 88305; 89055; J2001; J2704; J7120

== ENCOUNTER 2017-05-30 13:48 | Emergency (ER) | payer OTHER ==
[2017-05-30 14:16] VITALS: BP 120/81; PULSE 91; RESP 20; TEMP 97.2; O2SAT 97
--- NOTE | 2017-05-30 14:39 | ED PDOC ---
HPI: Skin/Bite Injury Time Seen by Provider: 05/30/17 14:12 Chief Complaint (Nursing): Abnormal Skin Integrity Chief Complaint (Provider): Abnormal skin integrity History Per: Patient History/Exam Limitations: no limitations Onset/Duration Of Symptoms: Days (x1) Current Symptoms Are (Timing): Still Present Location Of Injury: Posterior: Buttock Additional Complaint(s): Shay Wilder is a 26 year old male, with no past medical history, who presents to the emergency department for possible recurrence of rectal abscess onset since yesterday. Patient reports that he was admitted and treated by surgeon in February for similar symptom. He denies any fever, chills, or abdominal pain. No further medical complaints. PMD: None provided. Past Medical History Reviewed: Historical Data, Nursing Documentation, Vital Signs Vital Signs: Last Vital Signs Temp 97.2 F L 05/30/17 14:16 Pulse 91 H 05/30/17 14:16 Resp 20 05/30/17 14:16 BP 120/81 05/30/17 14:16 Pulse Ox 97 05/30/17 14:40 - Medical History PMH: Denies: HIV, Chronic Kidney Disease - Surgical History Surgical History: Appendectomy - Family History Family History: States: Unknown Family Hx - Immunization History Hx Tetanus Toxoid Vaccination: Yes (Last ER visit ) - Home Medications Home Medications: Ambulatory Orders Medication Instructions Recorded Cephalexin [Keflex] 500 mg PO QID #28 capsule 05/30/17 Sulfamethoxazole/Trimethoprim 2 each PO BID #28 tablet 05/30/17 [Bactrim Ds Tablet] - Allergies Allergies/Adverse Reactions: Allergies Allergy/AdvReac Type Severity Reaction Status Date / Time No Known Allergies Allergy Verified 03/26/17 10:20 Review of Systems ROS Statement: Except As Marked, All Systems Reviewed And Found Negative Physical Exam - Reviewed Nursing Documentation Reviewed: Yes Vital Signs Reviewed: Yes - Physical Exam Appears: Positive for: Well, Non-toxic, No Acute Distress Head Exam: Positive for: ATRAUMATIC, NORMAL INSPECTION, NORMOCEPHALIC Skin: Positive for: Normal Color, Warm, Dry Eye Exam: Positive for: EOMI, Normal appearance, PERRL Neck: Positive for: Normal, Painless ROM, Supple Rectal: Positive for: Other (1 cm abscess noted draining, not involving rectum. ) Extremity: Positive for: Normal ROM Neurologic/Psych: Positive for: Alert, Oriented - ECG O2 Sat by Pulse Oximetry: 97 (RA) Pulse Ox Interpretation: Normal Medical Decision Making Medical Decision Making: Initial Impression: Hallie-rectal abscess Initial Plan: -For abscess draining patient was advised to follow up with surgeon on Friday. Upon provider evaluation patient is medically stable, and requires no further treatment in the ED at this time. Patient will be discharged home. Patient was told to return if symptoms persist or worsen. Scribe Attestation: Documented by Zander Delgado, acting as a scribe for Asael Kohli PA-C Provider Scribe Attestation: All medical record entries made by the Scribe were at my direction and personally dictated by me. I have reviewed the chart and agree that the record accurately reflects my personal performance of the history, physical exam, medical decision making, and the department course for this patient. I have also personally directed, reviewed, and agree with the discharge instructions and disposition. Disposition - Clinical Impression Clinical Impression: Hallie-rectal abscess - Disposition Referrals: Poncho Mcelroy MD [Staff Provider] - Disposition Time: 14:45 Condition: STABLE Additional Instructions: F/U WITH SURGEON IN 2 TO 3 DAYS. RETURN TO ED FOR WORSENING SYMPTOMS/FEVER/VOMITING Prescriptions: Cephalexin [Keflex] 500 mg PO QID #28 capsule Sulfamethoxazole/Trimethoprim [Bactrim Ds Tablet] 2 each PO BID #28 tablet Instructions: Abscess (ED) Forms: [email or web address] ([place])
== END 2017-05-30 14:55 | disposition home or self-care (01) ==
LOC: H.ER 13:48
DX: K61.1 Rectal abscess (principal)